=== PATIENT | female | born 1975 | race Caucasian/White ===

== ENCOUNTER 2017-10-10 00:41 | Emergency (ER) | payer OTHER ==
[~2017-10-10] VITALS: Ht 170.2 cm; Wt 70.0 kg
[2017-10-10 00:51] VITALS: BP 108/69; PULSE 97; RESP 18; TEMP 98.8; O2SAT 98
--- NOTE | 2017-10-10 01:21 | PD ---
HPI Chief Complaint: Alcohol/Drug Intoxication Time Seen by Provider: 01:18 Travel History International Travel<30 days: No Contact w/Intl Traveler<30days: No Traveled to known affect area: No History of Present Illness HPI This is a 42-year-old female who presents under a [place] act initiated by the Police Department. The patient reports that he she drank a pint of whiskey tonight. She then got into an argument with her boyfriend Bryn and street somewhere. Her boyfriend called the police and the police brought her here because she was intoxicated. The patient has no acute complaints and is requesting to go home. She denies any trauma. She denies any headache or head injury. She denies any neck pain, back pain, pain in the extremities, chest, abdomen. She denies any drug use. She has no medical complaints and is requesting to be left alone. [facility] Past Medical History Medical History: Unable to Obtain ?: Unknown Past Surgical History Surgical History: Unable to Obtain Social History Alcohol Use: Yes Tobacco Use: Yes Substance Use: No Allergies-Medications (Allergen,Severity, Reaction): Coded Allergies: No Known Allergies (Unverified , 10/10/17) Review of Systems ROS Limitations: Intoxication Except as stated in HPI: all other systems reviewed are Neg Physical Exam Exam Limitations: Intoxication Narrative GENERAL: Well-developed well-nourished female who appears intoxicated. SKIN: Warm and dry. HEAD: Atraumatic. Normocephalic. EYES: Pupils equal and round. No scleral icterus. No injection or drainage. ENT: No nasal bleeding or discharge. Mucous membranes pink and moist. NECK: Trachea midline. No JVD. CARDIOVASCULAR: Regular rate and rhythm. No murmur appreciated. RESPIRATORY: No accessory muscle use. Clear to auscultation. Breath sounds equal bilaterally. GASTROINTESTINAL: Abdomen soft, non-tender, nondistended. Hepatic and splenic margins not palpable. MUSCULOSKELETAL: No obvious deformities. No clubbing. No cyanosis. No edema. NEUROLOGICAL: Awake and alert. No obvious cranial nerve deficits. Motor grossly within normal limits. Slurred speech. Data Data Last Documented VS Vital Signs Date Time Temp Pulse Resp B/P (MAP) Pulse Ox O2 Delivery O2 Flow Rate FiO2 10/10/17 00:51 98.8 97 18 108/69 (82) 98 MDM Medical Decision Making Medical Screen Exam Complete: Yes Emergency Medical Condition: Yes Medical Record Reviewed: Yes Differential Diagnosis Alcohol intoxication, closed head injury, polysubstance abuse Narrative Course The patient will remain here until she is clinically sober and then she will be discharged. Diagnosis Primary Impression: Alcohol intoxication Med/Other Pt SpecificInfo: No Change to Meds Disposition: 01 DISCHARGE HOME Condition: Stable Nacho Abebe Oct 10, 2017 01:21
== END 2017-10-10 06:31 | disposition home or self-care (01) ==
LOC: NEDAMB 00:41
DX: F10.129 Alcohol abuse with intoxication, unspecified (principal); Z72.0 Tobacco use
CPT/HCPCS: 99282